=== PATIENT | male | born 1990 | race Caucasian/White ===

== ENCOUNTER 2019-06-26 21:27 | Emergency (ER) | payer MEDICAID ==
[~2019-06-26] VITALS: Ht 182.9 cm; Wt 119.7 kg
[2019-06-26 21:54] VITALS: Ht 182.9 cm; Wt 119.7 kg
[2019-06-27 00:28] VITALS: BP 129/88
== END 2019-06-27 00:28 | disposition home or self-care (01) ==
LOC: ED 21:27
DX: J06.9 Acute upper respiratory infection, unspecified (principal); Z88.1 Allergy status to other antibiotic agents